=== PATIENT | female | born 2005 | race Caucasian/White ===

== ENCOUNTER 2024-12-11 02:40 | Emergency (ER) | payer OTHER ==
[~2024-12-11] VITALS: Ht 175.3 cm; Wt 79.4 kg
[2024-12-11 06:53] VITALS: BP 94/48; TEMP 98.5; O2SAT 100
== END 2024-12-11 06:54 | disposition home or self-care (01) ==
LOC: ER 02:46
DX: F10.129 Alcohol abuse with intoxication, unspecified (principal); Z79.899 Other long term (current) drug therapy; Y90.9 Presence of alcohol in blood, level not specified
CPT/HCPCS: 82962-TC